=== PATIENT | male | born 1960 | race Caucasian/White ===

== ENCOUNTER 2023-11-09 13:16 | Emergency (ER) | payer MEDICAID, OTHER ==
[2023-11-09] MEDS ORDERED: Ketorolac Tromethamine 60 MG/2 ML VIAL ONE (13:52)
[2023-11-09] MEDS ORDERED: Cyclobenzaprine 10 MG TAB ONE (13:52)
[2023-11-09] MEDS ORDERED: HYDROcodone/Acetaminophen 10/325 mg Tablet ONE (13:52)
== END 2023-11-09 15:28 | disposition home or self-care (01) ==
LOC: NAV ERS 13:16
DX: S33.5XXA Sprain of ligaments of lumbar spine, initial encounter (principal); I10 Essential (primary) hypertension; Z79.899 Other long term (current) drug therapy; X50.0XXA Overexertion from strenuous movement or load, initial encounter
CPT/HCPCS: 72131; 96372; J1885

== ENCOUNTER 2023-11-17 11:32 | Emergency (ER) | payer OTHER ==
[2023-11-17] MEDS ORDERED: Ketorolac Tromethamine 30 MG (1 mL) VIAL ONE (12:03)
[2023-11-17] MEDS ORDERED: Acetaminophen 325 MG TAB ONE (12:03)
[2023-11-17] MEDS ORDERED: Lidocaine 4% Patch TD SCH (12:15)
[2023-11-17] MEDS ORDERED: Transdermal Patch Removal TOP SCH (21:00)
== END 2023-11-17 12:52 | disposition home or self-care (01) ==
LOC: NAV ERS 11:32
DX: M54.41 Lumbago with sciatica, right side (principal); I10 Essential (primary) hypertension
CPT/HCPCS: 96372; 99283; J1885

== ENCOUNTER 2024-02-15 22:51 | Emergency (ER) | payer OTHER ==
[~2024-02-15 22:51] MED LIST: Iopamidol 300 61% 100 ML VIAL FS ONE
[2024-02-15] MEDS ORDERED: Nitroglycerin 0.4 MG TAB 1 EACH ONE (22:58)
[2024-02-15] MEDS ORDERED: Lidocaine 2% Viscous 100 ML BOTTLE ONE (22:58)
[2024-02-15] MEDS ORDERED: Aspirin Chewable 81 MG TAB ONE (22:58)
[2024-02-15] MEDS ORDERED: Mag-Al Plus 1200/1200/120 MG (30 mL) UDCUP ONE (22:59)
[2024-02-15] MEDS ORDERED: Nitroglycerin 0.4 MG TAB (25 Tab Bottle) SL PRN (23:04)
[2024-02-15 23:10] LABS: #Basophils 0.1 thou/uL (0.0-0.2); #Lymphocytes 2.3 thou/uL (1.20-3.40); #Monocytes 0.3 thou/uL (0.11-0.59); #Neutrophils 3.8 thou/uL (1.40-6.50); %Basophils 1.1 % (0.0-1.0); %Eosinophils 0.6 % (0.0-10.0); %Lymphocytes 35.5 % (21.0-51.0); %Neutrophils 57.8 % (42.0-75.0); Hematocrit 46.9 % (42.0-52.0); Hemoglobin 15.4 g/dL (14.0-18.0); Mean Corpuscular HGB CONC 32.9 g/dL (32.0-36.0); Mean Corpuscular Hemoglobin 28.3 pg (27.0-31.0); Mean Corpuscular Volume 86.1 fl (78.0-98.0); Mean Platelet Volume 7.9 fL (7.4-10.4); Platelet Count 181 10x3/uL (130-400); RBC Distribution Width 12.5 % (11.5-14.5); Red Blood Cell (RBC) Count 5.44 mill/uL (4.70-6.10); White Blood Cell (WBC) Count 6.6 10x3/uL (4.8-10.8)
[2024-02-15] MEDS ORDERED: Morphine 4 MG/ML VIAL ONE (23:11)
[2024-02-15] MEDS ORDERED: Ondansetron PF 4 MG/2 ML Vial ONE (23:11)
[2024-02-15 23:25] LABS: Troponin I Less than 0.010 ng/mL (< 0.028)
[2024-02-15 23:26] LABS: ALT (SGPT) 34 U/L (8-55); AST (SGOT) 38 U/L (5-34); Albumin 4.4 g/dL (3.4-4.8); Alkaline Phosphatase 60 U/L (40-110); Anion Gap 19 mmol/L (10-20); BUN (Urea Nitrogen) 12 mg/dL (8.4-25.7); Bilirubin, Total 0.5 mg/dL (0.2-1.2); Calc. Creatinine Clearance 0 mL/min (70-130); Calcium 9.2 mg/dL (7.8-10.44); Carbon Dioxide 18 mmol/L (23-31); Chloride 109 mmol/L (98-107); Estimated GFR 85; Globulin 3.5 g/dL (2.4-3.5); Glucose 121 mg/dL (80-115); Lipase 76 U/L (8-78); Potassium 3.6 mmol/L (3.5-5.1); Protein, Total 7.9 g/dL (5.8-8.1); Sodium 142 mmol/L (136-145)
[2024-02-16] MEDS ORDERED: Ondansetron PF 4 MG/2 ML Vial ONE (00:02)
[2024-02-16] MEDS ORDERED: Morphine 2 MG/ML VIAL ONE ×2 (00:34→02:26)
[2024-02-16] MEDS ORDERED: Nitroglycerin 2% Ointment 1 INCH/1 GM Packet ONE (00:54)
[2024-02-16] MEDS ORDERED: Nitroglycerin 0.4 MG TAB 1 EACH ONE (01:28)
[2024-02-16] MEDS ORDERED: Pantoprazole 40 MG VIAL ONE (01:28)
[2024-02-16] MEDS ORDERED: Acetaminophen 500 MG TAB ONE (02:26)
== END 2024-02-16 03:36 | disposition short-term general hospital (02) ==
LOC: NAV ERS 22:51
DX: R07.2 Precordial pain (principal); F10.129 Alcohol abuse with intoxication, unspecified; I10 Essential (primary) hypertension
CPT/HCPCS: 71045; 71275; 80053; 80307; 83690; 84484; 85025; 85379; 93005; 96374; 96375; 96376; C9113; J2270; J2272; J2405; Q9967